=== PATIENT | female | born 1975 | race Hispanic/Latino ===

== ENCOUNTER 2017-08-06 06:19 | Emergency (ER) | payer SELFPAY ==
[2017-08-06 06:51] LABS: Bilirubin Small (Negative); Blood, Urine Large (Negative); Clarity Turbid (Clear); Glucose, Urine (Dipstick) Negative (Negative); Leukocyte Negative (Negative); Nitrite Negative (Negative); Protein, Urine (Dipstick) 100 mg/dL (Neg-Trace); Specific Gravity, Urine 1.025 (1.005-1.030); Urobilinogen 0.2 mg/dL (0.2-1.0)
[2017-08-06 06:52] LABS: Bacteria/HPF 1+ HPF (None Seen); Crystals/HPF 3+ AMORPH URATES HPF (Negative); Hyaline Casts/LPF NONE SEEN LPF (0-3 Hyaline); RBC/HPF GREATER THAN 50-TNTC HPF (0-3)
[2017-08-06] MEDS ORDERED: Ketorolac Tromethamine 30 MG/ML VIAL ONE ×2 (07:00→07:28)
[2017-08-06] MEDS ORDERED: Ondansetron HCl/PF 4 MG/2 ML Vial ONE (07:00)
[2017-08-06] MEDS ORDERED: Morphine 4 MG/ML Carpuject ONE (07:00)
[2017-08-06 07:07] LABS: #Basophils 0.1 thou/uL (0.0-0.2); #Eosinphils 0.1 thou/uL (0.0-0.7); #Lymphocytes 1.5 thou/uL (1.20-3.40); #Monocytes 0.4 thou/uL (0.11-0.59); #Neutrophils 6.5 thou/uL (1.40-6.50); %Basophils 0.7 % (0.0-1.0); %Eosinophils 0.7 % (0.0-10.0); %Lymphocytes 17.9 % (21.0-51.0); %Monocytes 4.6 % (0.0-10.0); %Neutrophils 76.1 % (42.0-75.0); Hemoglobin 14.9 g/dL (12.0-16.0); Mean Corpuscular HGB CONC 33.3 g/dL (32.0-36.0); Mean Corpuscular Hemoglobin 28.5 pg (27.0-31.0); Mean Corpuscular Volume 85.4 fl (81.0-99.0); Mean Platelet Volume 6.6 fL (7.4-10.4); Platelet Count 154 thou/uL (130-400); RBC Distribution Width 11.5 % (11.5-14.5); Red Blood Cell (RBC) Count 5.24 mill/uL (4.20-5.40); White Blood Cell (WBC) Count 8.5 thou/uL (4.8-10.8)
[2017-08-06 07:08] LABS: BHCG - Serum Negative (NEGATIVE); Pregs Control Background? CLEAR/WHITE (CLR/WHITE); Pregs Control Bar Appear? YES (CONTROL BAR)
[2017-08-06 07:17] LABS: ALT (SGPT) 68 U/L (8-55); AST (SGOT) 62 U/L (5-34); Albumin 4.8 g/dL (3.5-5.0); Alkaline Phosphatase 104 U/L (40-150); Anion Gap 19 mmol/L (10-20); BUN (Urea Nitrogen) 9 mg/dL (7.0-18.7); Calc. Creatinine Clearance 0 mL/min (70-130); Calcium 9.9 mg/dL (7.8-10.44); Carbon Dioxide 22 mmol/L (22-29); Chloride 101 mmol/L (98-107); Estimated GFR-MDRD 81; Globulin 3.1 g/dL (2.4-3.5); Glucose 230 mg/dL (70-105); Lipase 36 U/L (8-78); Potassium 4.5 mmol/L (3.5-5.1); Protein, Total 7.9 g/dL (6.0-8.3); Sodium 137 mmol/L (136-145)
--- NOTE | 2017-08-06 07:58 | CT ---
CT ABDOMEN AND PELVIS NONCONTRAST: HISTORY: Left flank pain. COMPARISON: 02/28/17. FINDINGS: Mild distention of the left renal collecting system was present to the level of a 0.5 cm calculus wit hin the proximal left ureter. Additional oval calcifications are present within dilated left renal c alyces and nondilated right renal calyces, measuring up to 0.6 cm greatest diameter within the left k idney. The right ureter and urinary bladder are decompressed without stone apparent. Lack of contrast limits evaluation for other abnormalities. IMPRESSION: 1. Partial obstruction at a 5 mm proximal left ureteral calculus. 2. Additional nonobstructing bilateral renal calculi. POS: [facility]
== END 2017-08-06 09:10 | disposition home or self-care (01) ==
LOC: SCSER 06:19
DX: N20.0 Calculus of kidney (principal); E11.9 Type 2 diabetes mellitus without complications; E03.9 Hypothyroidism, unspecified; E78.5 Hyperlipidemia, unspecified; Z79.899 Other long term (current) drug therapy; Z79.84 Long term (current) use of oral hypoglycemic drugs
CPT/HCPCS: 74176; 80053; 81003; 81015; 83690; 84703; 85025; 87086; 96361; 96374; 96375; J1170; J1885; J2270; J2405

== ENCOUNTER 2017-12-07 14:21 | Emergency (ER) | payer SELFPAY | END 2017-12-07 15:09 | disposition home or self-care (01) | LOC: SCSER 14:21 | DX: K04.7 Periapical abscess without sinus (principal); E78.5 Hyperlipidemia, unspecified; E11.9 Type 2 diabetes mellitus without complications; E03.9 Hypothyroidism, unspecified; I10 Essential (primary) hypertension; F32.9 Major depressive disorder, single episode, unspecified; Z79.82 Long term (current) use of aspirin; Z79.84 Long term (current) use of oral hypoglycemic drugs; Z79.899 Other long term (current) drug therapy | CPT/HCPCS: 99282 ==

== ENCOUNTER 2018-06-05 16:23 | Emergency (ER) | payer OTHER, SELFPAY ==
[2018-06-05] MEDS ORDERED: Morphine 4 MG/ML VIAL ONE ×2 (17:41→18:58)
[2018-06-05] MEDS ORDERED: Ketorolac Tromethamine 30 MG/ML VIAL ONE (18:25)
[2018-06-05] MEDS ORDERED: Ondansetron PF 4 MG/2 ML Vial ONE (18:25)
== END 2018-06-05 19:30 | disposition home or self-care (01) ==
LOC: ERS 16:23
DX: N20.0 Calculus of kidney (principal); E11.9 Type 2 diabetes mellitus without complications; I10 Essential (primary) hypertension; E78.5 Hyperlipidemia, unspecified; E03.9 Hypothyroidism, unspecified; Z79.84 Long term (current) use of oral hypoglycemic drugs; Z79.899 Other long term (current) drug therapy
CPT/HCPCS: 96374; 96375; J1885; J2270; J2405

== ENCOUNTER 2018-11-11 09:31 | Outpatient (CLI) | payer MEDICAID ==
--- NOTE | 2018-11-11 10:38 | ULT ---
Abdominal ultrasound: 11/11/2018 COMPARISON: None HISTORY: Hepatomegaly TECHNIQUE: Multiplanar grayscale sonographic imaging of the abdomen obtained. FINDINGS: Imaged portions of the IVC and aorta appear grossly unremarkable. The distal aspect of the abdominal aorta is not well seen secondary to bowel gas. The peripheral contour of the liver is irregular. This could be better assessed via MRI of the abdome n. No focal liver lesion or intrahepatic biliary dilatation is seen. The gallbladder demonstrates no bucky dence for stone, wall thickening, or pericholecystic fluid. Common bile duct measures 5 mm, within normal limits. The pancreas is not well seen secondary to bowel gas. Right kidney measures 10 cm in craniocaudal dimension. There is a 6 mm echogenic focus in the lower p ole the right kidney which may represent a stone. No hydronephrosis or mass. Left kidney measures 10.3 cm in craniocaudal dimension. Echogenic focus in upper pole of left kidney measuring 7 mm, suggesting a stone. No hydronephrosis or mass. Spleen is upper limits of normal in size measuring 13-14 cm. IMPRESSION: Findings suspicious for hepatic cirrhosis. Follow-up MRI of abdomen advised. Bilateral renal calculi, incompletely assessed.
== END 2018-11-11 09:32 | disposition home or self-care (01) ==
LOC: BICULT 09:31
PROVIDERS: ATTEND Physician Assistant
DX: R16.0 Hepatomegaly, not elsewhere classified (principal); N20.0 Calculus of kidney
CPT/HCPCS: 76700

== ENCOUNTER 2018-12-03 14:11 | Outpatient (CLI) | payer OTHER ==
[~2018-12-03 14:11] MED LIST: Gadobenate Dimeglumine 529 MG/1 ML (20ML VIAL) ONE
--- NOTE | 2018-12-03 16:52 | MRI ---
MRI OF THE ABODMEN WITH AND WITHOUT IV CONTRAST: 12/03/18 HISTORY: Abnormal liver on ultrasound of 11/11/18. FINDINGS: There is mild irregularity of the surface of the liver suggestive of cirrhosis. There is mildly decre ased signal on the [id number] images in the liver, compared to the in-phase images with a hepatic f at fraction of 8.8% and hepatic fat percentage of 8.8%, consistent with mild steatosis. No hepatic ma ss or abnormal biliary ductal dilatation is seen. The spleen, pancreas, adrenal glands and a left kid irma. There are small cysts in the right kidney with low T1, high T2 signal and no postcontrast enhanc ing. A splenorenal shunt is seen with prominence of the veins in the left upper quadrant. No abnormal postcontrast enhancement is noted. The bone marrow signal is normal. IMPRESSION: 1. Mild hepatic steatosis with probable cirrhosis of the liver. 2. Right renal cysts. 3. Splenorenal shunt. POS: [facility]
== END 2018-12-03 14:12 | disposition home or self-care (01) ==
LOC: SCSMRI 14:11
PROVIDERS: ATTEND Physician Assistant
DX: R93.89 Abnormal findings on diagnostic imaging of other specified body structures (principal); K76.0 Fatty (change of) liver, not elsewhere classified; N28.1 Cyst of kidney, acquired; I87.8 Other specified disorders of veins
CPT/HCPCS: 74183; A9577

== ENCOUNTER 2019-03-11 07:29 | Day surgery (SDC) | payer OTHER ==
[2019-03-10 10:35] VITALS: BMI 32.5
[2019-03-11 08:05] LABS: PTT 25.7 SEC (22.9-36.1); Prothrombin Time 13.1 SEC (12.0-14.7)
[2019-03-11] MEDS ORDERED: Midazolam HCl 2 mg/2 ml Vial ONE (08:09)
[2019-03-11] MEDS ORDERED: Sodium Bicarbonate 2.5 MEQ/5 ML VIAL ONE (08:09)
[2019-03-11] MEDS ORDERED: Fentanyl 100 MCG/2 ML VIAL ONE (08:09)
[2019-03-11] MEDS ORDERED: Lidocaine 1% PF 5 ML VIAL ONE (08:09)
[2019-03-11 08:44] VITALS: BP 109/81; TEMP 99.2
--- NOTE | 2019-03-11 11:13 | ULT ---
EXAM: US Abdomen Limited CLINICAL HISTORY: Fatty liver. COMPARISON: None. FINDINGS: Liver:Heterogeneous echotexture of the liver. Left hepatic lobe is small. IMPRESSION: Heterogeneous echotexture of the liver. Small left hepatic lobe. Random liver biopsy will be performe d under CT guidance.
--- NOTE | 2019-03-11 11:14 | CT ---
CT GUIDED RANDOM LIVER BIOPSY: HISTORY: Fatty liver. COMPARISON: None. FINDINGS: Successful CT-guided random liver biopsy. Two 18-gauge core biopsies were performed and placed direct ly in formalin. TECHNIQUE: Initial noncontrast real time trader CT was performed. There is mild nodularity of the liver. The visualized erica id organs are grossly unremarkable. Bilateral nonobstructing intrarenal calculi. No mesenteric mass, lymphadenopathy, free air or free fluid. Visualized alimentary canal is unremarkable. The patient was placed in a supine position on the CT gantry. Right hepatic lobe was identified. The skin was prepped and draped in sterile fashion. 1% lidocaine, buffered with sodium bicarbonate was used for local anesthesia. Under CT guidance, a 17-gauge metallic trocar was advanced into the right hepatic lobe. Through this trocar, two 18-gauge core biopsy samples were obtained and placed directly in formalin. The patient tolerated the procedure well. No immediate or postprocedure complic ations. IMPRESSION: Successful CT-guided random liver biopsy. Final pathologic diagnosis is pending. Transcribed Date/Time: 03/11/2019 11:26 AM
== END 2019-03-11 11:40 | disposition home or self-care (01) ==
LOC: ULT 07:29
PROVIDERS: ATTEND Internal Medicine Gastroenterology
PROC: 0FB03ZX Excision of Liver, Percutaneous Approach, Diagnostic (ICD-10-PCS; principal; 2019-03-11)
DX: R93.2 Abnormal findings on diagnostic imaging of liver and biliary tract (principal); E11.9 Type 2 diabetes mellitus without complications; D57.3 Sickle-cell trait; K52.9 Noninfective gastroenteritis and colitis, unspecified; Z79.84 Long term (current) use of oral hypoglycemic drugs; Z79.899 Other long term (current) drug therapy
CPT/HCPCS: 47000; 76705; 77002; 85610; 85730; 88307; 88313; 88321; J2001; J2250; J3010

== ENCOUNTER 2019-03-18 11:34 | Emergency (ER) | payer OTHER, SELFPAY ==
[2019-03-18] MEDS ORDERED: Ondansetron PF 4 MG/2 ML Vial ONE (12:10)
[2019-03-18] MEDS ORDERED: Morphine 4 MG/ML VIAL ONE (12:10)
[2019-03-18 12:43] LABS: #Eosinphils 0.2 thou/uL (0.0-0.7); #Lymphocytes 2.1 thou/uL (1.20-3.40); #Monocytes 0.5 thou/uL (0.11-0.59); #Neutrophils 4.1 thou/uL (1.40-6.50); %Basophils 0.7 % (0.0-1.0); %Neutrophils 59.4 % (42.0-75.0); Mean Corpuscular Hemoglobin 31.3 pg (27.0-31.0); Mean Corpuscular Volume 87.1 fL (78.0-98.0); Mean Platelet Volume 7.5 fL (7.4-10.4); Platelet Count 142 thou/uL (130-400); RBC Distribution Width 12.5 % (11.5-14.5); Red Blood Cell (RBC) Count 4.15 mill/uL (4.20-5.40); White Blood Cell (WBC) Count 6.9 thou/uL (4.8-10.8)
[2019-03-18 12:48] LABS: BHCG - Serum Negative (NEGATIVE); Pregs Control Background? CLEAR/WHITE (CLR/WHITE); Pregs Control Bar Appear? YES (CONTROL BAR)
[2019-03-18 13:05] LABS: ALT (SGPT) 38 U/L (8-55); AST (SGOT) 31 U/L (5-34); Albumin 4.2 g/dL (3.5-5.0); Alkaline Phosphatase 85 U/L (40-150); Anion Gap 12 mmol/L (10-20); BUN (Urea Nitrogen) 10 mg/dL (7.0-18.7); Bilirubin, Total 0.5 mg/dL (0.2-1.2); Calc. Creatinine Clearance 0 mL/min (70-130); Calcium 9.9 mg/dL (7.8-10.44); Carbon Dioxide 26 mmol/L (22-29); Chloride 106 mmol/L (98-107); Estimated GFR-MDRD 78; Globulin 2.3 g/dL (2.4-3.5); Glucose 149 mg/dL (70-105); Lipase 32 U/L (8-78); Protein, Total 6.5 g/dL (6.0-8.3); Sodium 140 mmol/L (136-145)
[2019-03-18 13:23] LABS: Bilirubin Negative (Negative); Blood, Urine 1+ (Negative); Clarity Clear (Clear); Glucose, Urine (Dipstick) Normal (Negative); Leukocyte 75 Leu/uL (Negative); Nitrite Negative (Negative); Protein, Urine (Dipstick) Negative (Neg-Trace); Squamous Epithelial 0-3 HPF (0-3); Urobilinogen Normal mg/dL (Less than 2); Yeast-Budding Rare HPF (None Seen)
[2019-03-18 13:44] LABS: Bacteria/HPF Rare-Few HPF (None Seen)
--- NOTE | 2019-03-18 13:50 | CT ---
CT ABDOMEN AND PELVIS WITH IV CONTRAST: Date: 03/18/19 INDICATION: History of abdominal pain after liver biopsy. COMPARISON: CT guided liver biopsy evaluation dated 03/11/19, noncontrast CT abdomen and pelvis dated 01/18/19, a nd a contrast enhanced CT of abdomen and pelvis dated 03/20/18. FINDINGS: Cirrhotic morphology of the liver is stable. Small focal region of mild hyperenhancement is seen on i mage 15 of series 2 in the region of the patient's liver biopsy, which may reflect a mild amount of i nflammation following the biopsy. There is no evidence of active extravasation. No large intraparenchymal hematoma is noted. No subcaps ular hematoma is noted. The pancreas and adrenal glands are normal appearing. Spleen is enlarged, measuring 15.7 cm. Adrenal glands and visualized pancreas appear within normal limits. There are tiny nonobstructing ayaka culi involving both kidneys. There is a 4.0 mm calculus within the right UPJ without significant hydronephrosis. No ureteral calcu luis is noted. There is a calculus involving the left UPJ measuring approximately 4.0 mm, which is sta ble to the comparison in January 2019, without cristiano hydronephrosis. No free fluid or enlarged lymph nodes are evident. There is a normal appendix in the right lower quadrant. The colon is largely decompressed. The small bowel is normal appearing. Reproductive structures, bladder, rectum, and perirectal soft tissues are unremarkable appearing. No acute osseous abnormality is demonstrated. IMPRESSION: 1. Cirrhosis with findings of portal hypertension. 2. Bilateral nephrolithiasis with bilateral stones seen at the UPJ bilaterally without cristiano hydrone phrosis. 3. Mild area of contrast blushing seen within the right hepatic lobe, near the biopsy site which may reflect a small amount of residual inflammation from patient's recent liver biopsy. No active extrav asation of contrast is seen to suggest large vessel injury. No subcapsular hematoma or intraparenchym al hematoma is demonstrated. 4. Other findings as above. POS: [facility]
[2019-03-18] MEDS ORDERED: ISOVUE-370 76%-LOCM 1 ML ONE (17:14)
== END 2019-03-18 14:41 | disposition home or self-care (01) ==
LOC: ERS 11:34
DX: K74.60 Unspecified cirrhosis of liver (principal); F32.9 Major depressive disorder, single episode, unspecified; E11.9 Type 2 diabetes mellitus without complications; E03.9 Hypothyroidism, unspecified; E78.00 Pure hypercholesterolemia, unspecified; Z79.84 Long term (current) use of oral hypoglycemic drugs; Z79.899 Other long term (current) drug therapy
CPT/HCPCS: 74177; 80053; 81003; 81015; 83690; 84703; 85025; 96374; 96375; J2270; J2405; Q9966

== ENCOUNTER 2019-10-12 07:45 | Outpatient (CLI) | payer OTHER ==
--- NOTE | 2019-10-12 09:22 | ULT ---
HEPATIC ULTRASOUND WITH HINES SCALE AND COLOR FLOW AND SPECTRAL DOPPLER IMAGING: HISTORY: Cirrhosis of the liver. Abdominal pain and bloating. Nonalcoholic fatty liver. FINDINGS: There is nodularity of the liver surface consistent with cirrhosis. Coarse echogenicity of the liver is present. No evidence of focal mass or abnormal biliary ductal dilatation is seen. The pancreas is suboptimally visualized. The visualized portions of the pancreas; however, are unremarkable. The spleen is borderline measuring 13.2 cm in length. No gallstones, gallbladder wall thickening, or pericholecystic fluid is seen. No free fluid is ident ified. Normal flow and spectral waveforms are noted in the hepatic, portal, and splenic vasculature. IMPRESSION: 1. Cirrhosis of the liver. 2. No evidence of cholelithiasis. 3. Borderline splenomegaly. 4. If there is concern for acalculus cholecystitis, further evaluation with HIDA scan should be perf ormed. POS: [facility]
== END 2019-10-12 07:46 | disposition home or self-care (01) ==
LOC: SCSULT 07:45
PROVIDERS: ATTEND Physician Assistant Medical
DX: K75.81 Nonalcoholic steatohepatitis (NASH) (principal); K74.60 Unspecified cirrhosis of liver; R10.11 Right upper quadrant pain; R19.07 Generalized intra-abdominal and pelvic swelling, mass and lump; R07.9 Chest pain, unspecified
CPT/HCPCS: 76705

== ENCOUNTER 2019-11-16 10:01 | Outpatient (CLI) | payer OTHER ==
--- NOTE | 2019-11-16 11:02 | CT ---
CT abdomen and pelvis with IV and oral contrast HISTORY: Abdominal pain. Bloating. COMPARISON: 03/18/2019. FINDINGS: Mild parenchymal scarring at the left anterior lung base. Oral contrast is present througho ut the partially visualized esophagus. Nodular contour of the liver is again demonstrated. Dilated venous structures near the splenic hilum. Spleen measures up to 16.0 cm length. 3 small calcifications are present within nondilated calyces of the right kidney measuring up to 0.3 cm diameter. Calcification at the inferior pole of the left kidney is 0.2 cm greatest diameter. Small right renal cysts are stable. Prominent posterior disc bulge at the L4-5 level lower lumbar spine. No evidence of bowel obstruction or inflammation. Follicles arise from the ovaries. Ligation clips at each adnexa. IMPRESSION : No acute abnormalities are demonstrated. Cirrhosis with findings of portal venous hypertension including splenic varices and moderate splenome jose r. Gastroesophageal reflux. Nonobstructing bilateral renal calculi. Prominent posterior disc bulge at the L4-5 level.
== END 2019-11-16 10:02 | disposition home or self-care (01) ==
LOC: SCSCT 10:01
PROVIDERS: ATTEND Physician Assistant Medical
DX: R10.32 Left lower quadrant pain (principal); R10.10 Upper abdominal pain, unspecified; R11.0 Nausea; R19.00 Intra-abdominal and pelvic swelling, mass and lump, unspecified site; N20.0 Calculus of kidney; M51.86 Other intervertebral disc disorders, lumbar region; K21.9 Gastro-esophageal reflux disease without esophagitis; K74.60 Unspecified cirrhosis of liver; K76.6 Portal hypertension; I86.8 Varicose veins of other specified sites; R16.2 Hepatomegaly with splenomegaly, not elsewhere classified
CPT/HCPCS: 74177

== ENCOUNTER 2019-12-29 08:57 | Outpatient (CLI) | payer OTHER ==
--- NOTE | 2019-12-29 09:41 | ULT ---
Exam: Soft tissue ultrasound HISTORY: Palpable abnormality in the right lower back. Pain 3 weeks ago. Comparison none TECHNIQUE: Targeted sonographic imaging of the region of concern was performed FINDINGS: Mixed echotexture focus in the region of concern measuring 2.3 x 4.1 x 3.6 cm. No evidence of vascula r flow. IMPRESSION: Mixed echotexture focus in the region of concern, without vascular flow. Findings may rep resent complex fluid collection including abscess versus a resolving hematoma. Correlate clinically. Additional imaging as clinically warranted.
== END 2019-12-29 08:58 | disposition home or self-care (01) ==
LOC: SCSULT 08:57
PROVIDERS: ATTEND Physician Assistant
DX: M79.89 Other specified soft tissue disorders (principal); R93.7 Abnormal findings on diagnostic imaging of other parts of musculoskeletal system
CPT/HCPCS: 76999

== ENCOUNTER 2020-07-31 07:47 | Outpatient (CLI) | payer OTHER ==
--- NOTE | 2020-07-31 08:26 | ULT ---
Hepatic sonogram with duplex evaluation HISTORY: Cirrhosis. FINDINGS: The gallbladder has a normal appearance. Common duct is 0.3 cm. Liver is unremarkable without focal mass or intrahepatic biliary dilatation. No free fluid. Spleen measures up to 15.0 cm length without focal abnormality. Good color and spectral Doppler flow within the hepatic and splenic arteries. Portal venous flow is t owards the liver. Hepatic venous flow towards the IVC. IMPRESSION : Moderate splenomegaly. No other findings of portal venous hypertension. No other abnormalities.
== END 2020-07-31 07:48 | disposition home or self-care (01) ==
LOC: BICULT 07:47
PROVIDERS: ATTEND Physician Assistant Medical
DX: K74.60 Unspecified cirrhosis of liver (principal); K59.00 Constipation, unspecified; R10.11 Right upper quadrant pain; E11.9 Type 2 diabetes mellitus without complications; R16.1 Splenomegaly, not elsewhere classified
CPT/HCPCS: 76705

== ENCOUNTER 2020-08-20 19:00 | Outpatient (CLI) | payer OTHER | END 2020-08-20 19:01 | disposition home or self-care (01) | LOC: SLEEPLAB 19:00 | PROVIDERS: ATTEND Physician Assistant | DX: G47.33 Obstructive sleep apnea (adult) (pediatric) (principal); R53.83 Other fatigue; R51.9 Headache, unspecified; G31.84 Mild cognitive impairment of uncertain or unknown etiology; K21.9 Gastro-esophageal reflux disease without esophagitis; R06.83 Snoring; G47.00 Insomnia, unspecified; F41.8 Other specified anxiety disorders; E11.9 Type 2 diabetes mellitus without complications; I10 Essential (primary) hypertension; G47.10 Hypersomnia, unspecified; E66.9 Obesity, unspecified; Z68.37 Body mass index [BMI] 37.0-37.9, adult | CPT/HCPCS: 95810 ==

== ENCOUNTER 2020-09-05 19:30 | Outpatient (CLI) | payer OTHER | END 2020-09-05 19:31 | disposition home or self-care (01) | LOC: SLEEPLAB 19:30 | PROVIDERS: ATTEND Physician Assistant | DX: G47.33 Obstructive sleep apnea (adult) (pediatric) (principal); R53.83 Other fatigue; G31.84 Mild cognitive impairment of uncertain or unknown etiology; R51.9 Headache, unspecified; K21.9 Gastro-esophageal reflux disease without esophagitis; R06.83 Snoring; F41.8 Other specified anxiety disorders; G47.00 Insomnia, unspecified; E11.9 Type 2 diabetes mellitus without complications; G47.10 Hypersomnia, unspecified; I10 Essential (primary) hypertension; E66.9 Obesity, unspecified; Z68.37 Body mass index [BMI] 37.0-37.9, adult | CPT/HCPCS: 95811 ==

== ENCOUNTER 2021-07-18 13:37 | Outpatient (CLI) | payer OTHER | END 2021-07-18 13:38 | disposition home or self-care (01) | LOC: ULT 13:37 | PROVIDERS: ATTEND Physician Assistant Medical | DX: K74.60 Unspecified cirrhosis of liver (principal); K21.9 Gastro-esophageal reflux disease without esophagitis; R14.0 Abdominal distension (gaseous); R10.10 Upper abdominal pain, unspecified; E11.9 Type 2 diabetes mellitus without complications; R16.1 Splenomegaly, not elsewhere classified | CPT/HCPCS: 76700 ==

== ENCOUNTER 2021-07-25 10:26 | Outpatient (CLI) | payer OTHER | END 2021-07-25 10:27 | disposition home or self-care (01) | LOC: SCSRAD 10:26 | PROVIDERS: ATTEND Physician Assistant | DX: M25.561 Pain in right knee (principal); M25.562 Pain in left knee; M54.50 Low back pain, unspecified; M47.816 Spondylosis without myelopathy or radiculopathy, lumbar region | CPT/HCPCS: 72100 ==

== ENCOUNTER 2021-09-17 08:41 | Outpatient (CLI) | payer OTHER | END 2021-09-17 08:42 | disposition home or self-care (01) | LOC: BICMAMMO 08:41 | PROVIDERS: ATTEND Physician Assistant | DX: Z12.31 Encounter for screening mammogram for malignant neoplasm of breast (principal) | CPT/HCPCS: 77063; 77067 ==

== ENCOUNTER 2023-03-04 08:46 | Outpatient (CLI) | payer OTHER | END 2023-03-04 08:47 | disposition home or self-care (01) | LOC: BICULT 08:46 | PROVIDERS: ATTEND Physician Assistant Medical | DX: K74.60 Unspecified cirrhosis of liver (principal); K75.81 Nonalcoholic steatohepatitis (NASH); R16.1 Splenomegaly, not elsewhere classified | CPT/HCPCS: 76705 ==

== ENCOUNTER 2023-03-18 14:24 | Outpatient (CLI) | payer OTHER | END 2023-03-18 14:25 | disposition home or self-care (01) | LOC: BICMAMMO 14:24 | PROVIDERS: ATTEND Physician Assistant | DX: Z12.31 Encounter for screening mammogram for malignant neoplasm of breast (principal) | CPT/HCPCS: 77067 ==

== ENCOUNTER 2023-11-18 11:53 | Emergency (ER) | payer OTHER | END 2023-11-18 17:26 | disposition home or self-care (01) | LOC: ERS 11:53 | DX: K74.60 Unspecified cirrhosis of liver (principal); K76.6 Portal hypertension; E11.9 Type 2 diabetes mellitus without complications; I10 Essential (primary) hypertension; E03.9 Hypothyroidism, unspecified; Z79.82 Long term (current) use of aspirin; Z79.84 Long term (current) use of oral hypoglycemic drugs; Z79.4 Long term (current) use of insulin; Z79.899 Other long term (current) drug therapy | CPT/HCPCS: 36415; 71045; 74177; 80053; 80306; 80307; 81001; 83605; 83690; 84484; 85025; 87040; 96374; 96375; J0696; J2270; J2405; J3490; Q9967 ==